=== PATIENT | female | born 1980 | race Caucasian/White ===

== ENCOUNTER 2018-09-04 20:03 | Emergency (ER) | payer MEDICAID, OTHER ==
[2018-09-04] MEDS: predniSONE 20 MG TAB PO (22:27)
[2018-09-04] MEDS: IPRATROPIUM (NEB) 0.5 MG/2.5 ML AMP NEB (22:44)
[2018-09-04] MEDS: LEVALBUTEROL (NEB) 1.25 MG/0.5 ML AMP INH (22:44)
== END 2018-09-05 00:25 | disposition home or self-care (01) ==
LOC: FTE 09-05 00:25
DX: J45.901 Unspecified asthma with (acute) exacerbation (principal)
CPT/HCPCS: 71046; 94664; 99283-25